=== PATIENT | female | born 1960 | race Caucasian/White ===

== ENCOUNTER 2017-05-12 13:54 | Emergency (ER) | payer OTHER ==
[~2017-05-12] VITALS: Ht 170.2 cm; Wt 70.5 kg
[2017-05-12 14:27] LABS: HEMATOCRIT 36.4 % (34.6-47.8); HEMOGLOBIN 12.4 g/dL (11.7-16.4); WHITE BLOOD COUNT 6.2 x10^3/uL (3.4-10)
[2017-05-12 14:39] LABS: BLOOD UREA NITROGEN 17 mg/dL (7-18)
[2017-05-12 16:17] VITALS: BP 142/94
== END 2017-05-12 16:28 | disposition home or self-care (01) ==
LOC: ED 16:15
DX: R55 Syncope and collapse (principal); R10.31 Right lower quadrant pain; R10.32 Left lower quadrant pain; Z90.89 Acquired absence of other organs
CPT/HCPCS: 36415; 74020; 80048; 81003; 82040; 85025; 93005; 99285

== ENCOUNTER → 2017-06-07 | Outpatient (CLI) | payer OTHER ==
[2017-06-07 08:06] LABS: HEMATOCRIT 41.5 % (34.6-47.8); HEMOGLOBIN 14.3 g/dL (11.7-16.4)
[2017-06-07 08:25] LABS: ASPARTATE AMINO TRANSFERASE 15 U/L (15-37); BLOOD UREA NITROGEN 21 mg/dL (7-18)
== END | disposition home or self-care (01) ==
LOC: LAB 07:53
PROVIDERS: ATTEND Nurse Practitioner Family
DX: E78.5 Hyperlipidemia, unspecified (principal)
CPT/HCPCS: 36415; 80053; 80061; 85025

== ENCOUNTER 2018-07-15 09:04 | Emergency (ER) | payer OTHER ==
[~2018-07-15] VITALS: Ht 170.2 cm; Wt 72.1 kg
[2018-07-15 09:14] VITALS: BP 136/86
== END 2018-07-15 11:21 | disposition home or self-care (01) ==
LOC: ED 11:15
DX: S00.33XA Contusion of nose, initial encounter (principal); Z90.49 Acquired absence of other specified parts of digestive tract; W18.30XA Fall on same level, unspecified, initial encounter; Y93.89 Activity, other specified; Y92.69 Other specified industrial and construction area as the place of occurrence of the external cause; Y99.8 Other external cause status
CPT/HCPCS: 70160; 99283

== ENCOUNTER → 2019-10-16 | Outpatient (CLI) | payer OTHER ==
[2019-10-16 08:05] LABS: BASOPHILS # (AUTO) 0.06 x10^3/uL (0-0.1); BASOPHILS % (AUTO) 1 % (0-1); EOSINOPHILS # (AUTO) 0.23 x10^3/uL (0-0.4); EOSINOPHILS % (AUTO) 4 % (1-7); LYMPHOCYTES # (AUTO) 2.17 x10^3/uL (1-3.4); LYMPHOCYTES % (AUTO) 40 % (22-44); MD NO; MEAN CORPUSCULAR HEMOGLOBIN 31.2 pg (27.0-34.8); MEAN CORPUSCULAR HGB CONC 33.9 g/dL (32.4-35.8); MEAN CORPUSCULAR VOLUME 91.9 fL (80-100); MEAN PLATELET VOLUME 7.7 fL (7.4-10.4); MONOCYTES # (AUTO) 0.51 x10^3/uL (0.2-0.8); MONOCYTES % (AUTO) 9 % (2-9); NEUTROPHILS # (AUTO) 2.44 x10^3/uL (1.8-6.8); NEUTROPHILS % (AUTO) 45 % (42-75); PLATELET COUNT 267 x10^3/uL (130-400); RED BLOOD COUNT 4.68 x10^6/uL (3.82-5.3); RED CELL DISTRIBUTION WIDTH 12.7 % (9.6-15.2)
[2019-10-16 08:18] LABS: ALANINE AMINOTRANSFERASE 29 U/L (12-78); ALBUMIN 3.8 g/dL (3.4-5.0); ANION GAP 5 mmol/L (5-15); CHLORIDE 109 mmol/L (98-107)
[2019-10-16 08:21] LABS: ALKALINE PHOSPHATASE 112 U/L (45-117); BILIRUBIN,TOTAL 0.5 mg/dL (0.2-1.0); CHOL/HDL RATIO 2.7; CHOLESTEROL, TOTAL 232 mg/dL (140-239); CREATININE 0.82 mg/dL (0.55-1.02); HDL CHOL % 37 % (28-40); HDL CHOLESTEROL (DIRECT) 85 mg/dL (40-60); LDL CHOLESTEROL,CALCULATED 128 mg/dL (54-169); LDL/HDL RATIO 1.5 (0.5-3.0); TOTAL PROTEIN 7.6 g/dL (6.4-8.2); TRIGLYCERIDES 97 mg/dL (50-200); VLDL CHOLESTEROL 19 mg/dL (0-25)
== END | disposition home or self-care (01) ==
LOC: LAB 07:50
PROVIDERS: ATTEND Nurse Practitioner Family
DX: T78.00XA Anaphylactic reaction due to unspecified food, initial encounter (principal); E78.5 Hyperlipidemia, unspecified
CPT/HCPCS: 36415; 80053; 80061; 85025; 86003

== ENCOUNTER → 2020-08-18 | Outpatient (CLI) | payer OTHER, BC ==
[2020-08-18 07:22] LABS: BASOPHILS % (AUTO) 1 % (0-1); EOSINOPHILS % (AUTO) 4 % (1-7); LYMPHOCYTES % (AUTO) 37 % (22-44); MEAN CORPUSCULAR HEMOGLOBIN 31.8 pg (27.0-34.8); MEAN CORPUSCULAR HGB CONC 34.5 g/dL (32.4-35.8); MEAN PLATELET VOLUME 7.7 fL (7.4-10.4); MONOCYTES % (AUTO) 9 % (2-9); NEUTROPHILS % (AUTO) 49 % (42-75); PLATELET COUNT 245 x10^3/uL (130-400); RED BLOOD COUNT 3.93 x10^6/uL (3.82-5.3); RED CELL DISTRIBUTION WIDTH 13.1 % (9.6-15.2)
[2020-08-18 07:31] LABS: ALBUMIN 3.8 g/dL (3.4-5.0); ANION GAP 7 mmol/L (5-15); CALCIUM 8.8 mg/dL (8.5-10.1); CHLORIDE 110 mmol/L (98-107)
[2020-08-18 07:35] LABS: MD NO
[2020-08-18 07:43] LABS: ALANINE AMINOTRANSFERASE 25 U/L (12-78); ALKALINE PHOSPHATASE 109 U/L (45-117); BILIRUBIN,TOTAL 0.7 mg/dL (0.2-1.0); CHOL/HDL RATIO 2.4; CHOLESTEROL, TOTAL 206 mg/dL (140-239); CREATININE 0.77 mg/dL (0.55-1.02); FREE T4 (FREE THYROXINE) 1.02 ng/dL (0.76-1.46); HDL CHOL % 41 % (28-40); HDL CHOLESTEROL (DIRECT) 85 mg/dL (40-60); LDL CHOLESTEROL,CALCULATED 102 mg/dL (54-169); LDL/HDL RATIO 1.2 (0.5-3.0); TOTAL PROTEIN 7.4 g/dL (6.4-8.2); TRIGLYCERIDES 95 mg/dL (50-200); VLDL CHOLESTEROL 19 mg/dL (0-25)
== END | disposition home or self-care (01) ==
LOC: LAB 07:02
PROVIDERS: ATTEND Physician Assistant
DX: Z00.00 Encounter for general adult medical examination without abnormal findings (principal); E78.5 Hyperlipidemia, unspecified; E55.9 Vitamin D deficiency, unspecified
CPT/HCPCS: 36415; 80053; 80061; 82306; 84439; 84443; 84481; 85025